=== PATIENT | male | born 1950 | race Caucasian/White ===

== ENCOUNTER 2021-10-29 20:23 | Inpatient (IN) | payer MEDICARE, OTHER ==
[~2021-10-29] VITALS: Ht 177.8 cm; Wt 79.4 kg
--- NOTE | 2021-10-29 20:43 | NUR ---
CALLED RADIOLOGY TO TAKE THE PT TO CT
[2021-10-29] MEDS ORDERED: LEVETIRACETAM (500MG) 500 MG/5 ML VIAL IV ONE (20:45)
--- NOTE | 2021-10-29 20:45 | NUR ---
HELENA FROM PT'S APARTMENT. TO ER BED 17. PT IS SEDATED. NOT IN RESP DISTRESS, BREATHING UNLABORED. PER EMS REPORT, PT WAS REPORTED TO HAVE 3 EPISODE IN EPAST 3 HRS PRIOR TO THEIR ARRIVAL AND HAD ANOTHER EPISODE IN THE AMBULANCE, TOTAL OF 4 EPSIODE. UNKNOWN HX OF SEIZURE. PT WAS GIVEN VERSED 5MG IV BY THE EMS. O2 SAT NOTED @ 95 % ON RA PLACE DON 02 VIA NC @ 2LPM. SEIZURE PRECAUTION IN PLACE.
--- NOTE | 2021-10-29 20:49 | NUR ---
PT TAKEN FOR CT SCAN
--- NOTE | 2021-10-29 20:50 | NUR ---
BLOOD COLLECTED AND SENT TO LAB
[2021-10-29 21:00] LABS: BASOPHILS # (AUTO) 0.1 K/uL (0.0-0.2); BASOPHILS % (AUTO) 0.8 % (0.0-2.0); EOSINOPHILS % (AUTO) 0.1 % (0.0-6.0); HEMATOCRIT 37 % (39-51); HEMOGLOBIN 12.1 g/dL (13.5-17.5); LYMPHOCYTES % (AUTO) 13.9 % (20.0-44.0); MEAN CORPUSCULAR HGB CONC 33 g/dl (31.0-36.0); MEAN CORPUSCULAR VOLUME 92 fL (80-96); MONOCYTES # (AUTO) 0.5 K/uL (0.1-1.30); MONOCYTES % (AUTO) 6.2 % (2.0-12.0); NEUTROPHILS # (AUTO) 5.9 K/uL (1.8-8.9); PLATELET COUNT (AUTO) 177 K/uL (150-450); RED BLOOD CELL COUNT(AUTO) 3.97 MIL/uL (4.5-6.0); WHITE BLOOD COUNT (AUTO) 7.5 K/uL (4.3-11.0)
[2021-10-29] MEDS ORDERED: LEVETIRACETAM (500MG) 500 MG in IV NS 0.9% 100 ML IV ONE (21:00)
--- NOTE | 2021-10-29 21:04 | NUR ---
COVID SWAB DONE AND SENT TO LAB
--- NOTE | 2021-10-29 21:08 | NUR ---
EMT @ BEDSIDE FOR EKG
[2021-10-29] MEDS ORDERED: LORAZEPAM INJ 2 MG/ML VIAL ONE (21:24)
[2021-10-29 21:27] LABS: CARBON DIOXIDE 22 mmol/L (21-32); CHLORIDE 104 mmol/L (98-107); CREATININE 1.1 mg/dL (0.6-1.3); GLUCOSE 128 mg/dL (74-106); POTASSIUM 3.4 mmol/L (3.5-5.1); SODIUM SERUM 141 mmol/L (136-145); UREA NITROGEN, BLOOD 14 mg/dL (7-18)
--- NOTE | 2021-10-29 21:28 | NUR ---
URINE COLLECTED AND SENT TO LAB
[2021-10-29] MEDS ORDERED: LORAZEPAM INJ 2 MG/ML VIAL IM ONE (21:30)
--- NOTE | 2021-10-29 22:59 | NUR ---
IV LINE ESTABLISHED, RFA 18G
[2021-10-29 23:03] LABS: BILIRUBIN,DIRECT 0.1 mg/dL (0.0-0.2); BILIRUBIN,TOTAL 0.4 mg/dL (0.2-1.0)
[2021-10-29 23:04] LABS: ALANINE AMINOTRANSFERASE 32 U/L (12-78); ALBUMIN 3.6 g/dL (3.4-5.0); ALCOHOL, BLOOD < 3 mg/dL (0-0); ALKALINE PHOSPHATASE 79 U/L (46-116); ASPARTATE AMINOTRANSFERASE 35 U/L (15-37); TOTAL PROTEIN, SERUM 8.3 g/dL (6.4-8.2)
--- NOTE | 2021-10-29 23:20 | NUR ---
MRSA SWAB COLLECTED AND SENT TO LAB. PATIENT'S BELONGINGS LIST DONE.
--- NOTE | 2021-10-29 23:21 | NUR ---
REPORT GIVEN TO REAGAN FOFANA FOR RASHAD
[2021-10-29] MEDS ORDERED: ACETAMINOPHEN 650 MG/SUPP.RECT RC PRN (23:30)
[2021-10-29] MEDS ORDERED: ONDANSETRON HCL/PF 4 MG/2 ML VIAL IVP PRN (23:30)
[2021-10-29] MEDS ORDERED: LORAZEPAM INJ 2 MG/ML VIAL IV PRN ×2 (23:30)
[2021-10-29] MEDS ORDERED: IV 1/2NS 1000 ML 1,000 ML IV PRN (23:30)
--- NOTE | 2021-10-30 | NUR ---
Received from the ER via petty alert and disorientated / combative taking 4 nurses to get wrist restraints on and settles in the bed he is punching and kicking / and swearing calling the nurses names. Bed is near the nursing station patient has no understanding on the usage of the call light Ativan 0.5 mg given for agitation and effective. when he is approached he yells and kicks and swears. He did ask for a blanket nicely! 5 hours the ATIVAN given for agitatation he started becoming agitated once again legs over the rails yelling calling the nurses swearing names. Atvan Q 6 hours . NSR on the monitor padded siderails no seizure activity this 6 hours in my care
[2021-10-30] MEDS ORDERED: Thiamine 100 MG/ML VIAL ONE (01:19)
[2021-10-30] MEDS: Thiamine 100 MG in IV D5W 50 ML IV SCH ×2 (01:33→22:51)
[2021-10-30 02:00] VITALS: BP 131/75
[2021-10-30 03:30] VITALS: BP 131/75
--- NOTE | 2021-10-30 07:30 | NUR ---
ENAMEL PULVERIZER OPENING NOTES RECEIVED PATIENT ON BED RESTING AND A/O X1, CONFUSED. ON ROOM AIR TOLERATING WELL. NO SOB NOTED. NOT IN DISTRESS. WITH NO COMPLAINTS OF PAIN OR DISCOMFORT AT THIS TIME. ON BILATERAL SOFT WRIST RESTRAINTS DUE TO PATIENT'S AGGRESSION AND PULLING OUT OF IV LINES. ON TELE MONITOR CURRENTLY READING SINUS RHYTHM 70BPM. WITH IV ACCESS AT THE RIGHT FOREARM G20, WITH IVF 1/2NS AT 75ML/HR INFUSING WELL. SAFETY MEASURES IN PLACED. CALL LIGHT WITHIN REACH. BED ON LOWEST LOCKED POSITION, SIDE RAILS UP X2. WILL CONTINUE TO MONITOR.
[2021-10-30] MEDS ORDERED: BENA20TA9 PO (07:48)
[2021-10-30 08:00] VITALS: BP 141/81
[2021-10-30 08:19] LABS: BASOPHILS # (AUTO) 0.1 K/uL (0.0-0.2); BASOPHILS % (AUTO) 0.9 % (0.0-2.0); EOSINOPHILS % (AUTO) 0.4 % (0.0-6.0); HEMATOCRIT 36 % (39-51); HEMOGLOBIN 11.8 g/dL (13.5-17.5); LYMPHOCYTES # (AUTO) 1.9 K/uL (0.8-4.8); LYMPHOCYTES % (AUTO) 24.2 % (20.0-44.0); MEAN CORPUSCULAR HGB CONC 33 g/dl (31.0-36.0); MEAN CORPUSCULAR VOLUME 92 fL (80-96); MONOCYTES # (AUTO) 0.7 K/uL (0.1-1.30); MONOCYTES % (AUTO) 9.2 % (2.0-12.0); NEUTROPHILS # (AUTO) 5.2 K/uL (1.8-8.9); NEUTROPHILS % (AUTO) 65.3 % (43.0-81.0); PLATELET COUNT (AUTO) 176 K/uL (150-450); WHITE BLOOD COUNT (AUTO) 7.9 K/uL (4.3-11.0)
[2021-10-30 09:29] LABS: ALBUMIN 3.1 g/dL (3.4-5.0); BILIRUBIN,TOTAL 0.6 mg/dL (0.2-1.0); CREATININE 0.8 mg/dL (0.6-1.3); TOTAL PROTEIN, SERUM 7.4 g/dL (6.4-8.2)
[2021-10-30 09:33] LABS: THYROID STIMULATING HORMONE 1.321 uIU/mL (0.358-3.74)
[2021-10-30 12:05] LABS: CALCIUM, SERUM 8.2 mg/dL (8.5-10.1)
[2021-10-30 12:28] LABS: MAGNESIUM 1.6 mg/dL (1.8-2.4)
[2021-10-30 15:53] VITALS: BP 153/93
--- NOTE | 2021-10-30 19:02 | NUR ---
SECURITY COMPLIANCE SPECIALIST CLOSING NOTES PATIENT ON BED RESTING AND A/O X1, CONFUSED. ON ROOM AIR TOLERATING WELL. NO SOB NOTED. NOT IN DISTRESS. WITH NO COMPLAINTS OF PAIN OR DISCOMFORT AT THIS TIME. ON BILATERAL SOFT WRIST RESTRAINTS DUE TO PATIENT'S AGGRESSION AND PULLING OUT OF IV LINES. ON TELE MONITOR BUT ON STANDBY FOR PATIENT KEEPS ON REMOVING MONITOR CORDS. WITH IV ACCESS AT THE RIGHT FOREARM G20, WITH IVF 1/2NS AT 75ML/HR INFUSING WELL. DUE MEDS GIVEN. SAFETY MEASURES IN PLACED. CALL LIGHT WITHIN REACH. BED ON LOWEST LOCKED POSITION, SIDE RAILS UP X2. WILL ENDORSE TO NEXT SHIFT FOR RASHAD..
[2021-10-30 20:00] VITALS: BP 166/99
--- NOTE | 2021-10-30 20:06 | NUR ---
RHEOSTAT ASSEMBLER OPENING NOTES. PATIENT ON BED RESTING AND A/O X1, CONFUSED. ON ROOM AIR TOLERATING WELL.NO SIGN SOB/DISTRESS NOTED.NO COMPLAINTS OF PAIN/DISCOMFORT AT THIS TIME. ON BILATERAL SOFT WRIST RESTRAINTS DUE TO PATIENT'S AGGRESSION AND PULLING OUT OF IV LINES. ON TELE MONITOR BUT ON STANDBY FOR PATIENT KEEPS ON REMOVING MONITOR CORDS. WITH IV ACCESS AT THE RIGHT FOREARM G20, WITH IVF 1/2NS AT 75ML/HR INFUSING WELL.SAFETY MEASURES IN PLACED. CALL LIGHT WITHIN REACH. BED ON LOWEST LOCKED POSITION, SIDE RAILS UP X2. WILL CONTINUE TO MONITOR.
[2021-10-31] VITALS: BP 149/98
[2021-10-31 04:00] VITALS: BP 181/91
[2021-10-31 04:15] VITALS: BP 149/98
--- NOTE | 2021-10-31 06:42 | NUR ---
GREY GOODS TESTER CLOSING NOTES. PATIENT IN BED SLEEPING BUT EASY TO AROUSED. A/O X1, CONFUSED. ON ROOM AIR TOLERATING WELL.NO SIGN SOB/DISTRESS NOTED.NO COMPLAINTS OF PAIN/DISCOMFORT AT THIS TIME. ON BILATERAL SOFT WRIST RESTRAINTS DUE TO PATIENT'S AGGRESSION AND PULLING OUT OF IV LINES. ON TELE MONITOR BUT ON STANDBY FOR PATIENT KEEPS ON REMOVING MONITOR CORDS. WITH IV ACCESS AT THE RIGHT FOREARM G20, WITH IVF 1/2NS AT 75ML/HR INFUSING WELL.SAFETY MEASURES IN PLACED. CALL LIGHT WITHIN REACH. BED ON LOWEST LOCKED POSITION, SIDE RAILS UP X2. WILL ENDORSED TO NEXT SHIFT.
--- NOTE | 2021-10-31 07:15 | NUR ---
TRANSIT MECHANIC OPENING NOTE RECEIVED PATIENT ON BED PATIENT IS A/O X3-4. PATIENT IS ON ROOM AIR TOLERATING WELL.NO SIGN SOB/DISTRESS NOTED.NO COMPLAINTS OF PAIN/DISCOMFORT AT THIS TIME. ON BILATERAL SOFT WRIST RESTRAINTS DUE TO PATIENT'S AGGRESSION AND PULLING OUT OF IV LINES. ON TELE MONITOR READING SINUS RHYTHYM AT THIS TIME. WITH IV ACCESS AT THE RIGHT FOREARM G20, WITH IVF 1/2NS AT 75ML/HR INFUSING WELL.SAFETY MEASURES IN PLACED. CALL LIGHT WITHIN REACH. BED ON LOWEST LOCKED POSITION, SIDE RAILS UP X2.
--- NOTE | 2021-10-31 07:40 | NUR ---
BUSINESS CONTINUITY MANAGER NOTES PATIENT IS ALERT AND ORIENTED. BILATERAL WRIST RESTRAINTS. ABLE TO UNDERSTAND INSTRUCTIONS. NO APPARNET SIGNS OF CONFUSION AND AGGRESSION. COMFORT MEASURES PROVIDED.
[2021-10-31] MEDS ORDERED: LEVE500T9 PO (09:19)
[2021-10-31] MEDS ORDERED: MAGNESIUM OXIDE 400 MG TABLET PO ONE ×2 (09:30→10:00)
[2021-10-31] MEDS ORDERED: POTASSIUM CHLORIDE 20 MEQ TAB.PRT.SR PO ONE (09:30)
[2021-10-31 09:52] LABS: BASOPHILS # (AUTO) 0.1 K/uL (0.0-0.2); BASOPHILS % (AUTO) 0.9 % (0.0-2.0); EOSINOPHILS % (AUTO) 1.2 % (0.0-6.0); HEMATOCRIT 40 % (39-51); HEMOGLOBIN 13.3 g/dL (13.5-17.5); LYMPHOCYTES # (AUTO) 1.3 K/uL (0.8-4.8); MEAN CORPUSCULAR HGB CONC 33 g/dl (31.0-36.0); MEAN CORPUSCULAR VOLUME 91 fL (80-96); MONOCYTES # (AUTO) 0.6 K/uL (0.1-1.30); MONOCYTES % (AUTO) 9.2 % (2.0-12.0); NEUTROPHILS # (AUTO) 4.3 K/uL (1.8-8.9); NEUTROPHILS % (AUTO) 68.7 % (43.0-81.0); PLATELET COUNT (AUTO) 179 K/uL (150-450); RED BLOOD CELL COUNT(AUTO) 4.38 MIL/uL (4.5-6.0); WHITE BLOOD COUNT (AUTO) 6.2 K/uL (4.3-11.0)
[2021-10-31 11:02] LABS: ALBUMIN 3.4 g/dL (3.4-5.0); BILIRUBIN,TOTAL 0.7 mg/dL (0.2-1.0); CALCIUM, SERUM 8.1 mg/dL (8.5-10.1); CREATININE 0.7 mg/dL (0.6-1.3); MAGNESIUM 1.5 mg/dL (1.8-2.4); PHOSPHORUS 3.3 mg/dL (2.5-4.9); POTASSIUM 3.2 mmol/L (3.5-5.1)
--- NOTE | 2021-10-31 12:30 | NUR ---
DRIVER GUARD NOTE PATEINT SEEN BY DR. LEGGETT WITH ORDER FOR DISCHARGE. HEALTH TEACHING DONE REGARDNG DISCHARGE AND DISCHARGE ORDERS. VERBALIZED UNDERSTANDING AND APPRECIATION. COMFORT MEASURES APPRECIATION.
--- NOTE | 2021-10-31 14:13 | NUR ---
SS consult: SS Consult requested for possible alcohol abuse & drug use. The pt. is a 71-year-old male patient who was admitted to [facility] due to 4 total seizures. Upon SS consult, the pt. is Alert & Oriented x 4 and makes good eye contact. Pt. denies SI/HI and denies hallucinations. The pt.s thought process and thought content are WNL. The pt.s speech is slurred possibly secondary to missing teeth. The pt. has euthymic mood & affect. The pt. appears slightly unkempt, has dried blood on nose and right hand. Pt. stated he was doing gardening and got cut with the enid bushes. QIANA explored pt.s living situation. Per pt. he resides at [[address] [facility] [address]; [phone]]. Per pt. he resides with his long-term roommate, [facility] [phone]. Per pt. Candy assist with picking running errands for him like getting his medication and groceries. Per pt. he can drive but does not have a car so he is not driving. QIANA explored pt.s mental health Hx. Patient states he has not been diagnosed with a mental illness and is not on any antidepressants or psych meds. SW explored pt.s drug & ETOH use. Pt. states he had been drinking 1 shot of alcohol daily and then cut back and also uses some weed. Per EMR, pt. has Hx. of seizures. SW completed brief alcohol dependency intervention and pt. was receptive. QIANA offered for pt. to be referred to alcohol rehab and pt. refused and stated alcohol is not a problem for him. QIANA offered pt. addiction resources and educated pt. about different types of Tx f of support. Pt. accepted them. Per pt. he is ambulatory and independent with all his ADLs. QIANA explored pt.s support system. Pt. states his roommate is his support system. Pt. stated he has no family besides his 2 sons who he is not in communication with. Discharge Plan: Pt. has SW call his roommate, [facility] [phone] who per pt. may be able to pick him up when ready for discharge. Donna stated that the pt. is homeless and he cannot return there as she is worried he may have another seizure and that pt. should go to a rehabilitation center. QIANA explained to Donna that pt. does not meet criteria for SNF or ARU. SW notified Donna that the per MD note, pt. is medically cleared for discharge. QIANA spoke with the pt.s nurse who stated that the pt. will be prescribed Keppra to manage the seizures. Pt. was also stated to SW that he has been living with donna for 40 years and does not want to go to a facility and would like to go home. SW discussed self -determination with Donna. Donna expressed understanding. Patient stated he will take the bus to [[address] [facility] [address]; [phone]]as all his belongings are there. SW provided addiction resources, elderly resources and homeless resources in case he needs group home. Pt. expressed understanding & accepted them. SW will remain available as needed. Year-round shelters: [facility] [address] [phone] ; [facility] [place] [address] [place] [address]; [facility] [phone] [facility] Express. [facility] [address] Hygiene: [facility]: [address] [place] [address]. [place] ; [facility] [address]168 [facility] ; [facility] [address] [facility] . Food Resources: [place] [facility] at [facility]- 5700 [facility] CenterthiagoSt. [facility]; Meet Each Need with Dignity ([facility]) [address] [facility]; [facility] Food Pantry 4308 [facility]; [facility] 2122 [facility]. Mental Health resources provided: [facility] [address] [place] [address] ; [facility] [address], [place] [address] ; [facility] [address] [place] [address] ; [facility] [place], [place] [phone] Healthcare Clinics: [facility] [address], [address] [place]. [place] ; [facility] [address] [place] [address]; [facility] [address] [facility]. [place] [phone]) [phone] Counseling--Outpatient [facility] [address], [place] [address] (Specializes in in-depth psychotherapy for emotional distress: anxiety, depression, interpersonal conflicts, life transitions, childhood abuse) [facility] [address] [place] [address] (Assist with solving problem marital difficulties, separation & divorce, aging parents, & grief, chronic & terminal illness) [facility] [address] [place] [address] (Deal with loss & grief, anxiety, marital difficulties) Homebound/Mental Health Services [address], [address] [place], [place] [id number] (Provide in-home mental services to people who are incapable of leaving their homes) Organization for Needs of the Elderly Senior Service/Resource Center [address] [place] [address] [facility] [address] [place], [place] [id number] PSYCHIATRIC OUTPATIENT SERVICES [facility] Partial Hospitalization and Intensive Outpatient Program (Managed Care and [place] Only)[address] [facility] [phone] [facility] Partial Hospitalization and Outpatient Ergihup[address] [place], [place] [phone] FRANCOIS AURELIANO [facility] Health [place] Fhg[address] [place], [place] [phone] [facility] Partial Hospitalization and Outpatient Nrsvork07477 Goran GomezHOUGHTON, [phone] Substance Abuse resources provided included: [facility] Substance Abuse Self-Helpline (COX MONETT) ; CRI -HELP [address] [facility]. [place] [address] ; [facility] [place] [address] [facility] [address] ; [facility] [address] [facility] [address] ; [facility] 400 [facility] [phone] ; [facility] 4940 [facility] [address] ; [facility] 909 [facility] [phone] ; [facility] Substance Abuse Helpline(COX MONETT)-[facility] ; Action Family [facility]ing ; [facility] Emergency Department [place]; Cri-Help [place]; I-ADARP Inter Agency Drug Abuse Recovery [facility] Cent[facility]; Naplate [facility]omens [facility] [place]; [facility] [place]; [facility] [place]; [facility] S[facility]; Alcoholics Anonymous -SFV; Iq-Nhit-Mythppj ; Marijuana Anonymous -SFV; Narcotics Anonymous www.na.org; ABUSE PREVENTION: ELDER ABUSE HOTLINE (29/12) ADULT PROTECTIVE SERVICES HOTLINE LONG-TERM CARE [facility] Region AREA ON AGING (HOTLINE) ADULT DAY HEALTH CARE CARE CENTERS: Private pay or Medi-deidre funded adult day care [facility] Day Health Care [facility] , [facility] , [facility] , [facility] Adult Day Health Care , [facility] Adult Day Health Care , [facility] Adult Daycare [facility] , [facility] , [facility] , [place] ALZHEIMERS DISEASE/DEMENTIA: Alzheimers Association Helpline [facility] www.alz.org/[facility] Department of Aging www.lacity.org Family Caregiver [place] www.caregiver.org [place] Caregiver Resources Center/Family Support www.[facility].org CANCER RESOURCES: [place] Cancer Society www.cancer.org Cancer Support Community www.CancerSupportVvsb.org: CancerCare www.cancercare.org [facility] Cancer Support Center www.[facility].org COMMUNITY HEALTH ASSOCIATIONS: AARP www.aarp.org ALS Association (ask for Namrata) www.als.org Per[place] Diabetes Association www.diabetes.org Per[place] Heart Association www.heart.org Per[place]ian Lung Association www.lungusa.org Peruvian Parkinson Disease Association www.apdaparkinson.org Peruvian Irrigon , www.redcross.org Arthritis Foundation www.arthritis.org Crohns & Colitis Foundation of Peruvian www.ccfa.org/chapters/marcin National Multiple Sclerosis Society www.nationalmssociety.org Myasthenia Gravis Foundation www.myasthenia-ca.org National Stroke Association www.stroke.org CONSERVATORSHIP & GUARDIANSHIP: AARP Tram Cr Legal Services Center for Health Care Rights Eldercare Information and Referral Warehouseman [facility] [place] [facility]: [facility] Referral Service [facility] Legal Services Office of the Public Guardian Ama EYESIGHT DISORDER RESOURCES: [place] Macular Degeneration Foundation [facility] www.[facility].org GRIEF AND BEREAVEMENT RESOURCES: The Gathering Place , [facility] THE HOPE Connection , [facility] , [place] HEARING DISORDER RESOURCES: [place] Telephone Access Program Deaf and Disabled Telecommunications Program www.ddtp.cpuc.ca.gov HearRx Hearing Centers ([place]) Better Hearing Systems , [place] GLAD ([facility] Agency on Deafness) V/ TTY; Manufacturing Production Manager , [facility] Hearing [facility] [place] -low income hearing aid assistance www.starkeyhearingfoundation.org [place] [facility] Care Ramseskacie HELP AT HOME CAREGIVER SUPPORT: In Home Support Services (Must have Medi-Deidre to be eligible) *Ask for a list of agencies that provide services to assist with care in the home. Local Senior Centers also have listings of care providers. HOME SAFETY MODIFICATIONS AND EQUIPMENT: Senior centers have additional referrals. [place] Housing and Community Investment Dept. Handyworker Program (low income) or Visit http://hcidla.[facility] shaw.org/lhu-ngktnr-gx for more information National Seating and Mobility and/or ; Forever Active www.foreverCellARidemed.Audaster Stay Home Safe www.Stayhomesafe.Audaster LIFE ALERT RESPONSE SYSTEM: MD[facility]IP Lifeline Services 193-948-0040 www. MarketVibe Life Alert 315-038-9856 www.lifeNeronotert.Audaster Life Station 862-227-8305 www.NinthDecimalation.com Safe Return 768-915-4031 www.alz.or/safereturn Cell Phones for Seniors www.Flixpress MEALS AND FOOD PROGRAMS: [place] Meals on Wheels [phone] [place] Meals on Wheels [phone] [facility] [phone] [place] to the Homebound [phone] [place] to the Homebound [phone] [facility] to the Homebound [phone] [facility] to the Homebound [phone] Francois Clounga [phone] Abigail Franky [place] [phone] ONE Generation [phone] [facility] [phone] [facility] [phone] Meals on Wheels [phone] For all ages: $6.85/ meal w side. Delivered M-F from 10 am-1pm. Application and payment is done over the phone. Frozen meals available for weekends. Emergency Food [facility] [phone] [facility] Pool Servicer [phone] [facility] [phone] Julius Saba Outreach- Brown bag lunches [phone] THANIA CLARKS [facility] [phone] MEAL/GROCERY DELIVERY PROGRAMS: [facility] Gourmet [facility] [phone]- [facility] [phone]- [facility] Magic Kitchen [phone] Moms Meals [phone] (ask Christianson for Discount Select grocery stores may provide delivery. MEDICAL INSURANCE SUPPORT SERVICES: Center for Health Care Rights 474-170-0002 Health Insurance Counseling/Advocacy Programs (HICAP)-Must have Medicare. Offers counseling for Medi-Deidre eligibility [phone] Department of Public Pool Servicer 376-726-2348 www.mountainstar healthcare.ca.gov Medicare 765-806-8141 www.socialsecurity.org Social Security 875-039-1438 SENIOR ACTIVITY PROGRAMS: *Contact a local senior center, adult school, recreation facility or community college for education, fitness, recreation, and social programs. Aquatic Therapy and Adapted Exercise programs through [facility] [phone] Encore at [facility] [phone] [facility]/encore U- Senior Friends [phone] [place] Senior Programs 894-265-1174 www.oasisnet.org Suddenly 65 www.wqhdrvyk62.com SENIOR CENTERS: [facility] [phone] [facility] HospitalFrancois [phone] [facility] [phone] [facility] Innovation CenterJourdanJuárezCorewell Health [facility] [phone] [facility] [phone] [facility] [phone] [facility] [phone] [facility] [phone] One Generation, [facility] [phone] [facility] [phone] [facility] [phone] [facility] [phone] [facility] [place] [phone] TRANSPORTATION: Local [facility] Centers may have applications for transportation programs and additional resources. ACCESS Services [phone] Transportation for seniors and disabled persons 7 days a week requiring 254 hr. advance reservation. Must apply and register for program chuy eligible. Tansler [phone] or [phone] Transportation for seniors and persons with ADA card/metro disabled card in the [facility]. M-F only. Must register for services. ONE GENERATION [phone] Serves 65 years + in conjunction with [employer] program. Must be registered with both programs. A to B Transport [phone] Provides wheelchair/gurney van service. Adult Medical Transport [phone] Accepts Medi-deidre with prior authorization. Care Van [phone] Provides wheelchair Transport. [facility] Wide Transportation [phone] Provides gurney service Gentle [facility] [place] [phone] Gurney Transport. [facility] Transportation [phone] wheelchair & gurney transport [employer] Transportation [phone] wheelchair & gurney transport [place] Non-Emergency Transport [phone] wheelchair & gurney transport [facility] Living [place] [phone] Short Term Transportation primarily for adults with disabilities on social security income. Nominal fee may apply and a reservation is required. City Cab [phone] or [phone] Surfingbird [phone] [place] [address] Referral Services -[phone] For additional programs & services VETERANS RESOURCES: Submissions for Aid and Attendance should be done directly to [facility] office locatd at : [facility] [address] [place] [address]
--- NOTE | 2021-10-31 14:15 | NUR ---
RN NOTE PATIETN DISCHARGED ORDERED. IV ACCESS REMOVED AND COVERED WITH DRY DRESSING. PROCEDURE TOLERATED WELL. IN STABLE CONDITION. PATIENT IS AMBULATORY AND MEDICALLY STABLE. DISCHARGED ORDERED. ENDORSED ACCORDINGLY.
[2021-10-31] MEDS ORDERED: THIAMINE HCL 100 MG TABLET PO SCH (18:00)
== END 2021-10-31 14:15 | disposition home or self-care (01) | DRG 100 ==
LOC: ER 20:25 → TELE 22:54
PROVIDERS: ADMIT Nurse Practitioner Family; ATTEND Internal Medicine
DX: G40.509 Epileptic seizures related to external causes, not intractable, without status epilepticus (principal); G92.8 Other toxic encephalopathy; F10.239 Alcohol dependence with withdrawal, unspecified; E51.2 Wernicke's encephalopathy; E87.6 Hypokalemia; Y90.0 Blood alcohol level of less than 20 mg/100 ml; D64.9 Anemia, unspecified; E83.42 Hypomagnesemia; R73.9 Hyperglycemia, unspecified; R00.1 Bradycardia, unspecified; R78.89 Finding of other specified substances, not normally found in blood; F03.90 Unspecified dementia, unspecified severity, without behavioral disturbance, psychotic disturbance, mood disturbance, and anxiety; Z20.822 Contact with and (suspected) exposure to COVID-19
CPT/HCPCS: 36415; 70450-TC; 71045-TC; 80048-TC; 80053-TC; 80061-TC; 80076-TC; 82607-TC; 83540-TC; 83605-TC; 83735-TC; 83880; 84100-TC; 84443-TC; 84484-TC; 85025-TC; 85730-TC; 87081-TC; 92526; 92611-TC; 93307-TC; C9803; G0378; G0480; J1953; J2060; J3411; J3490; J7030; J7060